=== PATIENT | male | born 1970 | race Caucasian/White ===

== ENCOUNTER 2019-10-24 18:51 | Emergency (ER) | payer OTHER, SELFPAY ==
[2019-10-24 19:01] VITALS: BP 144/98; PULSE 86; RESP 22; TEMP 37.5; O2SAT 99
--- NOTE | 2019-10-24 19:20 | ED.URI ---
HPI - URI/Sore Throat General Chief Complaint: Upper Respiratory Infection Stated Complaint: congestion sore throat achey Time Seen by Provider: 10/24/19 19:20 Source: patient and RN notes reviewed History of Present Illness HPI Narrative: Patient is a 49-year-old male that presents the urgent care with complaints of chills, sweats, sore throat, sinus congestion, dry cough, fatigue, body aches. Patient states that started 2 days ago. States that his spouse originally had it and she is now feeling much better. Patient states that his main concern is that he needs a doctor's note off work. Denies any use of [id number] medication. No other acute complaints. No acute distress noted. Patient aware the plan of care. Related Data Home Medications Medication Instructions Recorded Confirmed No Home Medications 10/24/19 10/24/19 Allergies Allergy/AdvReac Type Severity Reaction Status Date / Time No Known Allergies Allergy Verified 10/24/19 19:15 Review of Systems Review of Systems: Narrative: CONSTITUTIONAL: Reports of chills and sweats and fatigue EYES: Denies visual changes, redness, or discharge. ENT: Reports of congestion, sore throat, postnasal drainage CARDIOVASCULAR: Denies chest pain, palpitations, or edema. RESPIRATORY: Reports of cough without dyspnea GASTROINTESTINAL: Denies abdominal pain, nausea, vomiting, or diarrhea. GENITOURINARY: Denies dysuria or hematuria. SKIN: Denies rash or itching. MUSCULOSKELETAL: Denies back pain, joint pain; reports of body aches NEUROLOGIC: Denies headache, numbness, or weakness. All other systems reviewed are negative, except as documented in HPI. PMFSH Comments At the time of my signature, I reviewed and agree with the nursing past medical, surgical, social, and family history. There is no relevant family history pertinent to the patient complaint. Exam Narrative: Exam Narrative: GENERAL: This is a well-nourished, well-developed patient, in no apparent distress. HEAD: normocephalic, atraumatic. EYES: PERRL. Sclera clear/white. Vision is grossly intact. EARS: External ears normal, auditory canals clear and without drainage, TMs normal without perforation. Hearing grossly intact. NOSE: External nose normal with no obvious nasal discharge, mild bilateral erythemic nares with clear rhinorrhea THROAT: Mucous membranes moist, moderate erythema noted posterior oropharynx with moderate postnasal drainage NECK: Neck supple CARDIOVASCULAR: Regular rate and rhythm without murmurs, gallops, or rubs. RESPIRATORY: Clear to auscultation. Breath sounds equal bilaterally. No wheezes, rales, or rhonchi. SKIN: warm, intact with no suspicious lesions or rash, good texture and turgor. NEURO: awake, alert, and oriented to person, place and time. There were no obvious focal neurologic abnormalities. EXTREMITIES: No clubbing, cyanosis, or edema. Course Vital Signs Vital signs: Vital Signs Temperature 99.5 F 10/24/19 19: Pulse Rate 86 10/24/19 19:01 Respiratory Rate 22 H 10/24/19 19:01 Blood Pressure 144/98 H 10/24/19 19:01 Pulse Oximetry 99 10/24/19 19:01 Temperature 99.5 F 10/24/19 19:01 Pulse Rate 86 10/24/19 19:01 Respiratory Rate 22 H 10/24/19 19:01 Blood Pressure 144/98 H 10/24/19 19:01 Pulse Oximetry 99 10/24/19 19:01 Reviewed?patient is informed that they may have pre-hypertension or hypertension based on a blood pressure reading in the department. I recommend the patient call the primary care provider listed on their discharge instructions or a physician of their choice this week to arrange follow-up for further evaluation of possible pre-hypertension or hypertension. MDM - URI/Sore Throat MDM Narrative Medical decision making narrative: Reviewed lab results with the patient. He is aware that flu swab was negative. Strep swab was also negative. Educated patient on culture we will call within 72 hours if culture is positive and antibiotics are
== END 2019-10-24 19:35 | disposition home or self-care (01) ==
PROVIDERS: Emergency Provider Nurse Practitioner Family
DX: J06.9 Acute upper respiratory infection, unspecified (principal)
CPT/HCPCS: 87081; 87804; 87880; 99203; G0463